=== PATIENT | female | born 1930 | race Asian ===

== ENCOUNTER 2016-11-13 15:08 | Inpatient (IN) | payer MEDICAID, OTHER ==
[~2016-11-13] VITALS: Ht 154.9 cm; Wt 65.3 kg
[~2016-11-13 15:08] MED LIST: BACL10TA PO; CALC1TAB53 PO; FLUT12AE7 IH; GABA-529 PO; MONT5TAB13 PO; SIMV-259 PO; [UNRECOGNIZED DRUG - OTHER]
[2016-11-13 15:15] LABS: GLUCOSE,POINT OF CARE 178 MG/DL (70-110)
[2016-11-13] MEDS ORDERED: LOSA100T29 PO (15:17)
[2016-11-13] MEDS ORDERED: ALLO100T PO (15:17)
[2016-11-13] MEDS ORDERED: METO-323 PO (15:17)
[2016-11-13] MEDS ORDERED: ATOR40TA71 PO (15:17)
[2016-11-13] MEDS ORDERED: FAMO40TA7 PO (15:17)
[2016-11-13] MEDS ORDERED: CITA10TA68 PO (15:17)
[2016-11-13] MEDS ORDERED: SPIR25 PO (15:17)
[2016-11-13] MEDS ORDERED: LEVO5TAB13 PO (15:17)
[2016-11-13 17:42] LABS: BASOPHILS % (AUTO) 0.2 % (0.0-2.0); EOSINOPHILS % (AUTO) 1.2 % (1.0-6.0); HEMATOCRIT 41.9 % (36-46); HEMOGLOBIN 13.4 g/dL (12.0-16.0); LYMPHOCYTES # (AUTO) 2.9 K/uL (1.0-4.8); LYMPHOCYTES % (AUTO) 20.7 % (22.0-44.0); MEAN CORPUSCULAR HEMOGLOBIN 29.4 pg (26.0-34.0); MEAN CORPUSCULAR HGB CONC 32.1 G/dL (31.0-37.0); MEAN CORPUSCULAR VOLUME 92 fL (80-100); MONOCYTES # (AUTO) 1.2 K/uL (0.1-1.0); MONOCYTES % (AUTO) 8.5 % (2.0-9.0); NEUTROPHILS # (AUTO) 9.9 K/uL (1.8-7.7); NEUTROPHILS % (AUTO) 69.4 % (40.0-70.0); PLATELET COUNT (AUTO) 182 K/uL (150-450); RED BLOOD CELL COUNT(AUTO) 4.57 MIL/uL (4.00-5.20); RED CELL DISTRIBUTION WIDTH 14.4 % (11.5-14.5); WHITE BLOOD COUNT (AUTO) 14.2 K/uL (4.5-11.0)
[2016-11-13 17:54] LABS: CALCIUM, TOTAL 10.1 mg/dL (8.8-10.5); CREATININE 4.08 mg/dL (0.60-1.30)
[2016-11-13 18:00] LABS: ALBUMIN 4.2 g/dL (3.4-5.0); BILIRUBIN,TOTAL 0.8 mg/dL (0.1-1.0); TOTAL PROTEIN, SERUM 8.3 g/dL (6.4-8.2)
[2016-11-13] MEDS ORDERED: ONDANSETRON HCL 4 MG/2 ML VIAL IVP ONE (18:15)
[2016-11-13] MEDS ORDERED: MORPHINE SULFATE 4 MG/ML SYRINGE IVP ONE (18:15)
[2016-11-13] MEDS ORDERED: SODIUM CHLORIDE 0.9% 1,000 ML IV ONE ×3 (18:15→21:30)
[2016-11-13] MEDS ORDERED: OxyCODONE HCL/ACETAMINOPHEN 5-325 MG TABLET PO ONE (18:30)
[2016-11-13] MEDS ORDERED: 0.9% SODIUM CHLORIDE 10 ML SYRINGE IVP PRN (20:00)
[2016-11-13] MEDS ORDERED: ACETAMINOPHEN 325 MG TABLET PO PRN ×2 (20:00→21:15)
[2016-11-13] MEDS ORDERED: ONDANSETRON HCL 4 MG/2 ML VIAL IVP PRN (20:00)
[2016-11-13] MEDS ORDERED: BISACODYL 10 MG RECTAL RECTAL SUPPOSITORY PR PRN (21:15)
[2016-11-13] MEDS ORDERED: SODIUM CHLORIDE 0.9% 1,000 ML IV SCH (21:30)
[2016-11-13 21:49] VITALS: BP 118/46
[2016-11-14] VITALS (7 sets, daily range): BP systolic 91–127; BP diastolic 43–63
[2016-11-14 07:17] LABS: BASOPHILS % (AUTO) 0.1 % (0.0-2.0); EOSINOPHILS % (AUTO) 1.4 % (1.0-6.0); HEMATOCRIT 37.1 % (36-46); LYMPHOCYTES # (AUTO) 1.2 K/uL (1.0-4.8); LYMPHOCYTES % (AUTO) 10.3 % (22.0-44.0); MEAN CORPUSCULAR HEMOGLOBIN 29.5 pg (26.0-34.0); MEAN CORPUSCULAR HGB CONC 32.4 G/dL (31.0-37.0); MEAN CORPUSCULAR VOLUME 91 fL (80-100); MONOCYTES # (AUTO) 0.9 K/uL (0.1-1.0); MONOCYTES % (AUTO) 8.1 % (2.0-9.0); NEUTROPHILS # (AUTO) 9.2 K/uL (1.8-7.7); NEUTROPHILS % (AUTO) 80.1 % (40.0-70.0); PLATELET COUNT (AUTO) 157 K/uL (150-450); RED BLOOD CELL COUNT(AUTO) 4.07 MIL/uL (4.00-5.20); RED CELL DISTRIBUTION WIDTH 14.2 % (11.5-14.5); WHITE BLOOD COUNT (AUTO) 11.5 K/uL (4.5-11.0)
[2016-11-14 07:32] LABS: CALCIUM, TOTAL 8.7 mg/dL (8.8-10.5); CREATININE 3.01 mg/dL (0.60-1.30); POTASSIUM 4.1 mmol/L (3.5-5.1)
[2016-11-14] MEDS: HEPARIN SODIUM,PORCINE 5,000 UNITS/ML VIAL SQ SCH ×2 (08:02→20:23)
[2016-11-14] MEDS: DOCUSATE SODIUM 100 MG CAPSULE PO SCH ×2 (08:03→20:23)
[2016-11-14] MEDS: ASPIRIN 81 MG CHEWABLE TABLET PO SCH (08:03)
[2016-11-14] MEDS: PANTOPRAZOLE SODIUM 40 MG DR TABLET PO SCH (08:03)
[2016-11-15 04:51] VITALS: BP 114/52
[2016-11-15 07:48] VITALS: BP 118/51
[2016-11-15] MEDS: ASPIRIN 81 MG CHEWABLE TABLET PO SCH (08:50)
[2016-11-15] MEDS: HEPARIN SODIUM,PORCINE 5,000 UNITS/ML VIAL SQ SCH (08:50)
[2016-11-15] MEDS: PANTOPRAZOLE SODIUM 40 MG DR TABLET PO SCH (08:50)
[2016-11-15] MEDS: DOCUSATE SODIUM 100 MG CAPSULE PO SCH (08:51)
[2016-11-15] MEDS: SODIUM CHLORIDE 0.9% 500 ML IV SCH ×2 (10:06→10:07)
[2016-11-15] MEDS ORDERED: SODIUM CHLORIDE 0.9% 500 ML IV ONE (10:15)
[2016-11-15 11:00] LABS: CALCIUM, TOTAL 9.1 mg/dL (8.8-10.5); CREATININE 1.28 mg/dL (0.60-1.30)
[2016-11-15 11:49] VITALS: BP 127/56
[2016-11-15 15:27] VITALS: BP 143/68
== END 2016-11-15 17:45 | disposition home or self-care (01) | DRG 683 ==
LOC: EMS 15:13 → 5S 19:54
PROVIDERS: ADMIT Internal Medicine; ATTEND Internal Medicine
DX: N17.9 Acute kidney failure, unspecified (principal); M84.48XA Pathological fracture, other site, initial encounter for fracture; E86.0 Dehydration; R55 Syncope and collapse; I10 Essential (primary) hypertension; M19.90 Unspecified osteoarthritis, unspecified site; E78.5 Hyperlipidemia, unspecified; H53.2 Diplopia; Z88.0 Allergy status to penicillin; Z79.899 Other long term (current) drug therapy; Z79.51 Long term (current) use of inhaled steroids; Z96.651 Presence of right artificial knee joint; Z98.49 Cataract extraction status, unspecified eye; Z98.890 Other specified postprocedural states
CPT/HCPCS: 70450; 70551; 72125; 82948; 82962; 93005; 93306; 96361; 96374; 99285; J1644; J2270; J2405; J7030; J7040

== ENCOUNTER → 2017-01-14 | Outpatient (CLI) | payer MEDICAID, OTHER ==
[~2017-01-14] MED LIST changes: +ATOR40TA71 PO; -BACL10TA PO; +FAMO40TA7 PO; -GABA-529 PO; -SIMV-259 PO; -[UNRECOGNIZED DRUG - OTHER]
== END | disposition home or self-care (01) ==
LOC: RADPV 01-10 12:30
DX: M48.02 Spinal stenosis, cervical region (principal)
CPT/HCPCS: 72052

== ENCOUNTER → 2017-10-14 | Outpatient (CLI) | payer MEDICAID, OTHER | END | disposition home or self-care (01) | LOC: RADPV 12:41 | PROVIDERS: ATTEND Internal Medicine | DX: M77.31 Calcaneal spur, right foot (principal) ==